=== PATIENT | male | born 1995 | race African-American/Black ===

== ENCOUNTER 2024-08-10 21:23 | Emergency (ER) | payer SELFPAY ==
[2024-08-10] MEDS: IBUPROFEN 400MG TABLET PO ONE (21:53)
[2024-08-10 22:56] VITALS: BP 110/62; PULSE 59; TEMP 37.2; O2SAT 99
== END 2024-08-10 23:00 | disposition home or self-care (01) ==
LOC: ER 21:23
DX: S21.219A Laceration without foreign body of unspecified back wall of thorax without penetration into thoracic cavity, initial encounter (principal); X58.XXXA Exposure to other specified factors, initial encounter; Y93.89 Activity, other specified; Y92.89 Other specified places as the place of occurrence of the external cause; Y99.8 Other external cause status
CPT/HCPCS: 71045; 99283